=== PATIENT | female | born 1950 | race Caucasian/White ===

== ENCOUNTER 2016-06-02 22:49 | Inpatient (IN) | payer MEDICARE, OTHER ==
--- NOTE | ~2016-06-02 | HOLTER ---
Holter Monitor [facility] [address] [place]. [address] NAME: REDD CAMPBELL : 49 STATUS : DIS IN PAT#: [id number] AGE: 66 ADM/REG DATE : 06/03/16 MR#: [id number] REPORT SERV DATE: 06/13/16 DICTATED BY: CHUCHO MURGUIA DATE: 06/13/16 REPORT STATUS : Draft TRANSCRIBED BY: MODL DATE: 06/13/16 22-HOUR HOLTER MONITOR REPORT RESPONSIBLE PROVIDER: Johana Kaye M.D.. INDICATIONS: This 66-year-old female with sinus pauses. RECORDING QUALITY: Overall quality of study is good. RHYTHM: Rhythm is sinus, which varies from 48 to 99 beats per minute with an average heart rate of 74 beats per minute. VENTRICULAR ARRHYTHMIA: There are occasional PVCs. SUPRAVENTRICULAR ARRHYTHMIA: There are occasional PACs. SYMPTOMS: No diary submitted. CONCLUSION: No significant dysrhythmia found. No significant symptoms noted. Please see attached worksheet for further details. Definitions for premature beat frequency Approximately Rare <100 <0.1 % Occasional 100-1500 0.1 - 1.5 % Frequent >1500 >1.5 % TROY/LOTUS Chucho Murguia M.D. / [id number]
--- NOTE | ~2016-06-02 | DS ---
Discharge Summary [place] [address] [place]. [address] NAME: REDD CAMPBELL : 49 STATUS : DIS IN PAT#: [id number] AGE: 66 ADM/REG DATE : 06/03/16 MR#: [id number] REPORT SERV DATE: 06/11/16 DICTATED BY: DATE: REPORT STATUS : Draft TRANSCRIBED BY: MODL DATE: 06/10/16 ADMISSION DATE: 06/03/2016 DISCHARGE DATE: 06/10/2016 DISCHARGE DIAGNOSES: 1. Severe hypothyroidism. 2. Obstructive sleep apnea with CPAP machine. 3. Obesity hypoventilation syndrome. 4. Bradycardia, sinus pauses. 5. Hypertension. 6. Escherichia coli urinary tract infection. 7. Diabetes mellitus type 2. CONSULTING PHYSICIANS: 1. Kentrell Teixeira M.D. 2. David Suarez M.D. 3. Keegan Barajas M.D. 4. Eitan Reveles M.D. DISCHARGE MEDICATIONS: 1. Aspirin 81 mg p.o. daily. 2. Bumex 2 mg p.o. daily. 3. Wellbutrin 300 mg XL p.o. daily. 4. Venelex ointment apply to bilateral legs b.i.d. 5. Vitamin D 1000 units p.o. daily. 6. Flonase two sprays in each nostril daily. 7. NovoLog sliding scale. 8. Imdur ER 60 mg p.o. daily. 9. Zyrtec 10 mg p.o. daily. 10.Cozaar 50 mg p.o. daily. 11.Prilosec 20 mg p.o. daily. 12.Potassium chloride 20 mEq p.o. daily. 13.Pravastatin 20 mg p.o. at bedtime. 14.Arcola Thyroid 195 mg p.o. daily. 15.Apresoline 25 mg p.o. q.8 hours, hold for systolic blood pressure less than 140. 16.Levemir 35 units subcu daily. 17.Tylenol 650 mg p.o. q.4 hours p.r.n. for temp greater than 101. 18.Artificial Tears one to two drops in both eyes four times daily p.r.n. 19.Voltaren Gel apply to affected areas b.i.d. p.r.n. for pain. 20.Ativan 0.5 mg p.o. b.i.d. p.r.n. for anxiety. 21.Nitroglycerin 0.4 mg sublingual p.r.n. for chest pain. 22.Zofran 4 mg sublingual q.4 hours p.r.n. for nausea. 23.Zanaflex 4 mg p.o. t.i.d. p.r.n. for muscle spasms. 24.Albuterol inhaler q.2 hours p.r.n. for shortness of breath. 25.Victoza pen 1.8 mg subcu daily. Discharge Summary [address] [address] NAME: REDD CAMPBELL : 49 STATUS : DIS IN PAT#: [id number] AGE: 66 ADM/REG DATE : 06/03/16 MR#: [id number] REPORT SERV DATE: 06/11/16 DICTATED BY: DATE: REPORT STATUS : Draft TRANSCRIBED BY: MODMonroe DATE: 06/10/16 IMAGING: CT of the brain without contrast, which was negative for an acute intracranial process. Portable chest x-ray demonstrated cardiomegaly. Lungs were clear. Venous Doppler of the lower extremities bilaterally demonstrated no evidence of DVT in the right or left lower extremity. An echocardiogram that showed normal left ventricular wall thickness in size, normal left ventricular ejection fraction without segmental wall motion abnormalities, normal left atrial dimensions, normal diastolic function, mitral annular calcification, aortic valve sclerosis without stenosis, trivial valvular regurg, indeterminate pulmonary artery pressure. For full H and P please refer to Dr. Yefri Cochran's dictation on 06/02/2016. HOSPITAL COURSE: Again, the patient was admitted on 06/03/2016 initially with confusion. Apparently, the patient has been on thyroid replacement for a long time. She is taking [place]col[place] Thyroid, she was taking 180 mg p.o. daily when her primary care physician increased her to 195 mg p.o. daily; however, the Pharmacy gave her 15 mg p.o. daily. The patient reports that she took the 15 mg for multiple months. She came in with a TSH of 102 and it was subsequently rechecked prior to I took over her care, and it was 127. The patient was receiving Synthroid IV 100 mcg b.i.d. I placed the patient back on [place]col[place] Thyroid 195 mg p.o. daily. She is no longer confused. She is alert and oriented x4. Apparently, probably related to her thyroid issues she developed some bradycardia with sinus pauses. Her home Coreg was discontinued. Cardiology was consulted. She had a cardiac workup which included echo as mentioned above. Dr. Reveles has been following and she has not had any bradycardia or sinus pauses in the last several days. The patient is to follow up with him in two weeks after discharge. The patient did have a physical therapy eval which recommended the patient go to a longterm facility for rehabilitation prior to going home. She will be going to a [facility] today. Upon discharge I will continue her CPAP for obstructive sleep apnea. The patient was counseled on dietary changes for her obesity. The patient's BMI is 72. Her hypertension has been controlled. Apparently, she had a urinary tract infection that grew E. coli. The patient received three days of IV Rocephin, and I D/C'd the Rocephin and started her on Levaquin which she received another four days of. She is no longer symptomatic, so I will discontinue the Levaquin prior to discharge. The patient also a diabetic, her blood sugars have been fairly well controlled. Her hemoglobin A1c was 7.9. She is currently on Levemir which I will continue as well as insulin sliding scale. The patient will be instructed to follow up with her primary care provider for further TSH and free T4 checks in the future, the first being in four to six weeks. Her primary care physician is Dr. Eloy Hui. CAR/LOTUS [place] Discharge Summary [address] [address] NAME: REDD CAMPBELL : 49 STATUS : DIS IN PAT#: [id number] AGE: 66 ADM/REG DATE : 06/03/16 MR#: [id number] REPORT SERV DATE: 06/11/16 DICTATED BY: DATE: REPORT STATUS : Draft TRANSCRIBED BY: MODL DATE: 06/10/16 Timur Harrell NP / [id number] CC: MD Eloy Koehler M.D. Alexander Stratienko, M.D.
--- NOTE | ~2016-06-02 | ECH ---
Echocardiogram [address] [address] NAME: REDD CAMPBELL : 49 STATUS : ADM IN PAT#: [id number] AGE: 66 ADM/REG DATE : 06/03/16 MR#: [id number] REPORT SERV DATE: 06/07/16 DICTATED BY: CORBIN REVELES DATE: 06/06/16 REPORT STATUS : Draft TRANSCRIBED BY: MODL DATE: 06/06/16 ORDERING DOCTOR: Dr. Keys INDICATIONS: ? Congestive heart failure, atrial fibrillation, sinus pauses. TECH: Overall quality of the sound transmission is limited. MEASUREMENTS (in cm) Aortic Root = 3.1. Septal Wall = 1.1 Posterior Wall = 1.1 LV Diastolic = 5.3 LV Systolic = 3.6 Left Atrium = 3.7 CEASAR: Indeterminate. ASCENDING AORTA: 2.8 cm LVEF: By visual estimation 50%. E/A: 0.8. 2D DOPPLER: 1. Aortic Valve: Sclerotic with adequate systolic excursion. 2. Aortic Root: Normal. 3. Mitral Valve: Mitral annular calcification and leaflet thickening identified. Adequate diastolic leaflet excursion. 4. Tricuspid Valve: Morphologically normal without prolapse. 5. Pulmonic Valve: Grossly normal. 6. Left Ventricle: No high grade segmental wall motion abnormalities. Ejection fraction is estimated to be in the range of 50%. 7. Right Ventricle: Normal. 8. Pericardial Space: No effusion. 9. Intracardiac Masses: None. 10.Other: None. DOPPLER/COLOR FLOW: 1+ AR. No MR. 1+ TR. No ME. FINAL IMPRESSION: 1. Normal LV wall thickness and size. 2. Normal left ventricular ejection fraction without segmental wall motion abnormalities. 3. Normal left atrial dimensions. 4. Normal diastolic function. 5. Mitral annular calcification. 6. Aortic valve sclerosis without stenosis. 7. Trivial valvular regurgitation as defined. 8. Indeterminate pulmonary artery pressure. Echocardiogram [address] [address] NAME: REDD CAMPBELL : 49 STATUS : ADM IN PAT#: [id number] AGE: 66 ADM/REG DATE : 06/03/16 MR#: [id number] REPORT SERV DATE: 06/07/16 DICTATED BY: CORBIN REVELES DATE: 06/06/16 REPORT STATUS : Draft TRANSCRIBED BY: MODL DATE: 06/06/16 /MODL Corbin Reveles M.D. / [id number] CC: Arleen Velazquez M.D.
--- NOTE | ~2016-06-02 | CN ---
Consultation Report [facility] [address] [place]. [address] NAME: REDD CAMPBELL : 49 STATUS : ADM IN PAT#: [id number] AGE: 66 ADM/REG DATE : 06/03/16 MR#: [id number] REPORT SERV DATE: 06/06/16 DICTATED BY: DAVID SUAREZ DATE: 06/06/16 REPORT STATUS : Draft TRANSCRIBED BY: MODL DATE: 06/06/16 ELECTROPHYSIOLOGY CONSULTATION DATE OF CONSULTATION: 06/06/2016 INDICATION: Bradycardia. HISTORY OF PRESENT ILLNESS: Redd Campbell is a 66-year-old female who was admitted on the 06/03/2016 with altered mental status and urinary tract infection. She had been in a rehab facility. She has uncontrolled hypothyroidism with a TSH greater than 100, obesity hypoventilation syndrome, morbid obesity, and noncompliance with CPAP. While here, for urinary tract infection, she is undergoing treatment. She is noted to have some nocturnal pauses up to about seven seconds either sinus pauses as well as occasional bradycardia in the morning with heart rates in the 40s. She is nonambulatory. She has not had yvette syncope. She reports some dizziness if she attempts to rise to a sitting position or getting into a car, but otherwise she does not walk at all. Electrophysiology is consulted to re-evaluate sinus pauses. She has no complaints of chest pain at the present time. Does have chronic shortness of breath. She has massive bilateral lower extremity edema. PAST MEDICAL HISTORY: Hypothyroidism, apparently noncompliant with thyroid hormone replacement; ANDRZEJ and noncompliant with CPAP; bilateral lower extremity lymphedema; history of an IVC filter; history of ovarian cancer; morbid obesity; hypertension; diabetes; hyperlipidemia; peripheral vascular disease; coronary artery disease. PRESENT MEDICATIONS: Aspirin, Bumex, Wellbutrin, Rocephin, subcu heparin, hydralazine, sliding scale insulin, Imdur, lactulose, Synthroid, Claritin, Cozaar, Levemir, Pravachol, potassium, and Protonix. ALLERGIES: ABILIFY AND INDERAL. THE PATIENT WAS ON COREG ON ADMISSION, BUT THAT WAS DISCONTINUED SECONDARY TO BRADYCARDIA. SOCIAL HISTORY: No smoking. No alcohol. She has been a significant amount of time in rehab by her report. FAMILY HISTORY: Notable for lupus. REVIEW OF SYSTEMS: As per the HPI. Otherwise, all other review of systems are negative. PHYSICAL EXAMINATION: VITAL SIGNS: Blood pressure 134/65, pulse is 79, respiratory rate is 20. Consultation Report [place] [address] [place]. [address] NAME: REDD CAMPBELL : 49 STATUS : ADM IN PAT#: [id number] AGE: 66 ADM/REG DATE : 06/03/16 MR#: [id number] REPORT SERV DATE: 06/06/16 DICTATED BY: DAVID SUAREZ DATE: 06/06/16 REPORT STATUS : Draft TRANSCRIBED BY: MODMonroe DATE: 06/06/16 GENERAL: Appears stated age, no distress. EYES: Sclerae anicteric, no arcus senilis. MOUTH: Oral mucosa moist, lips acyanotic. NECK: Jugular venous pressure normal, no carotid bruits. LUNGS: Diminished breath sounds. CARDIAC: Irregular rhythm. Heart sounds distant secondary to body habitus.. ABDOMEN: Morbidly obese. Soft, nondistended, nontender. EXTREMITIES: Massive bilateral lower extremity edema with chronic venous stasis changes. SKIN: Warm and dry. DATA: Sodium is 140, potassium 4.1, creatinine 1.33. Hemoglobin 13.5. BNP 40. TSH 127. Telemetry demonstrates sinus rhythm with sinus pauses as described above. ECG this morning is sinus rhythm with first-degree AV delay. Q-waves in lead V1 and V2. IMPRESSION: 1. Nocturnal sinus pauses up to seven seconds. 2. Intermittent daytime bradycardia in the morning hours. The patient likely asleep at these times with heart rates to the 40s. 3. History of noncompliance with CPAP/untreated obstructive sleep apnea, marked hypothyroidism, and recent beta radha use and the patient is nonambulatory. RECOMMENDATIONS: At this point, I would not recommend implantation of a pacemaker. I would treat underlying causes such as her sleep apnea and significant hypothyroidism and would remain off beta radha. The patient is nonambulatory, so risk of fall with syncope she would develop that seems fairly low. We are concerned about the risk of implantable device infection in this lady with diabetes and urinary tract infection. FAMILIA/LOTUS David Suarez M.D. / [id number] CC: Arleen Velazquez M.D.
--- NOTE | ~2016-06-02 | HP ---
History And Physical [place] [address] [facility] [place]. [address] NAME: REDD CAMPBELL : 49 STATUS : ADM IN [facility]#: [id number] AGE: 66 ADM/REG DATE : 06/03/16 MR#: [id number] REPORT SERV DATE: 06/03/16 DICTATED BY: YEFRI COCHRAN DATE: 06/03/16 REPORT STATUS : Draft TRANSCRIBED BY: MODL DATE: 06/03/16 DATE OF ADMISSION: 06/03/2016 CHIEF COMPLAINT: Confusion. HISTORY OF PRESENT ILLNESS: This is a 66-year-old lady with history of hypertension, diabetes, hypothyroidism amongst many other medical conditions, presenting with a confusion. Please note that while the patient was quite alert and with it, the patient really was not able to provide any valuable history. By the time of my encounter with the patient, the patient's family had left and they were unreachable by phone. This H and P is formulated from information gathered from ED staff as well as from careful review of existing previous medical records. The patient apparently became confused over the past couple of days and the family members decided to bring her to the ER. There was no history of acute illness. There is no history of focal neurologic deficits. The patient simply became confused apparently. In the ER, the patient was found to be afebrile. The patient was initially found to be quite hypertensive with blood pressure of 208/195, which got somewhat better throughout the ER course. The patient was otherwise hemodynamically stable. Initial lab evaluation was actually all very benign with benign electrolytes, benign renal function, benign LFTs. CBC was also quite benign. TSH was checked and it actually came back hugely elevated at 102. Urinalysis was also positive for urinary tract infection and ABG showed hypoxia. Internal Medicine consultation was requested for admission of the patient for further evaluation and care. In reviewing the patient's medication history, the patient was apparently supposed to be on 180 of Victoria Thyroid and then, the patient's primary care physician increased the Victoria Thyroid by adding another 15. Apparently, there was a miscommunication and instead of adding the 15 to her 180, the patient was simply switched to 15 and thus as far as we know, the patient has been on 15 of Victoria Thyroid for the past two months when she is really supposed to be on 195 mg. REVIEW OF SYSTEMS: The patient denies any fevers or chills. Also, 14-point review of systems reviewed and negative, other than mentioned above. MEDICATIONS: 1. Tylenol 1000 mg p.o. b.i.d. p.r.n. 2. Artificial Tears four times daily p.r.n. 3. Aspirin 81 mg p.o. daily. 4. Bumex 2 mg p.o. daily. 5. Wellbutrin 300 mg p.o. daily. 6. Coreg 6.25 mg p.o. b.i.d. 7. Zyrtec 10 mg p.o. q.a.m. 8. Vitamin D3 1000 units p.o. daily. 9. Voltaren 1% topical gel to affected areas as needed. 10.Imdur 30 mg p.o. daily. 11.Victoza 1.8 mg subcutaneously daily. History And Physical [address] [address] NAME: REDD CAMPBELL : 49 STATUS : ADM IN [facility]#: [id number] AGE: 66 ADM/REG DATE : 06/03/16 MR#: [id number] REPORT SERV DATE: 06/03/16 DICTATED BY: YEFRI COCHRAN DATE: 06/03/16 REPORT STATUS : Draft TRANSCRIBED BY: LOTUS DATE: 06/03/16 12.Ativan 0.5 mg p.o. b.i.d. 13.Cozaar 50 mg p.o. daily. 14.Aleve 440 mg p.o. three times daily p.r.n. 15.Nitrostat 0.4 mg sublingually as needed. 16.Prilosec 20 mg p.o. daily. 17.K-Dur 20 mEq p.o. daily. 18.Pravachol 20 mg p.o. q.h.s. 19.Victoria Thyroid 15 mg p.o. daily, which is really supposed to be 195 mg p.o. daily. 20.Zanaflex 4 mg p.o. three times daily p.r.n. 21.Venelex ointment twice daily topically. ALLERGIES: 1. ABILIFY. 2. PROPRANOLOL. PAST MEDICAL HISTORY: 1. Chronic bilateral lower extremity lymphedema. 2. Coronary artery disease. 3. Hiatal hernia and GERD. 4. IBS. 5. Morbid obesity. 6. Hypertension. 7. Diabetes type 2. 8. Hypothyroidism and Graves disease. 9. Hyperlipidemia. 10.Peripheral artery disease. 11.Lupus. 12.AFib. 13.DVT with history of IVC filter. PAST SURGICAL HISTORY: 1. IVC filter. 2. Hysterectomy. 3. Cholecystectomy. 4. Ovarian cancer and unclear uterus surgery. 5. Bilateral carpal tunnel release. 6. Left foot surgery. FAMILY HISTORY: Lupus. SOCIAL HISTORY: The patient does not smoke, drink alcohol, or use any illicit drugs. The patient apparently lives at home by herself with her daughter living close by. PHYSICAL EXAMINATION: VITAL SIGNS: Temperature 97.7, blood pressure 208/95 which by the time of my encounter showed a blood pressure of 161/141, pulse 73, respiratory rate is 20, and saturating 94% on room air. History And Physical [address] [address] NAME: REDD CAMPBELL : 49 STATUS : ADM IN [facility]#: [id number] AGE: 66 ADM/REG DATE : 06/03/16 MR#: [id number] REPORT SERV DATE: 06/03/16 DICTATED BY: YEFRI COCHRAN DATE: 06/03/16 REPORT STATUS : Draft TRANSCRIBED BY: LOTUS DATE: 06/03/16 GENERAL: The patient is alert and oriented x3 with no focal neurologic deficits. The patient is awake, somewhat slow in mentation, but still able to interact and have a meaningful conversation. The patient otherwise does not appear to be in acute distress, and the patient is cooperative. NECK: No JVD. No lymphadenopathy. Normal thyroid. CHEST: No midline sternotomy scar and no tenderness to palpation. LUNGS: Clear to auscultation bilaterally with normal respiratory effort on room air. CARDIOVASCULAR: Regular rate and rhythm with no murmurs, rubs, or gallops, and PMI is nondisplaced. ABDOMEN: Soft, nontender, with active bowel sounds and no organomegaly. EXTREMITIES: The patient's bilateral lower extremities are tightly wrapped and dressed by Wound Care at home. Otherwise, the patient has no calf tenderness. SKIN: Clean, dry, warm, and intact. LABORATORY DATA: Sodium is 142, potassium 4.0, chloride 97, BUN 21, creatinine 1.14, glucose 175, calcium 9.0. LFTs and lipase are within normal limits. Ammonia level was 28, white blood cell count is 6.3, hemoglobin 13.1, platelets 162. TSH was 102. Free T3 and free T4 levels are pending at this time. ABG; pH is 7.38, pCO2 60, pO2 64, and oxygen saturation of 92.2% on room air. Urinalysis was positive with small leukocyte esterase, positive for nitrite, 31 white blood cells, and many bacteria. CT of the head showed a marked proptosis, but otherwise negative. ASSESSMENT: This is a 66-year-old lady with history of hypertension, diabetes, morbid obesity, and hypothyroidism, presenting with encephalopathy. 1. Encephalopathy, likely multifactorial. The patient is actually quite awake and interactive here in the ER. 2. Uncontrolled hypothyroidism with TSH greater than 100. This is likely secondary to medication misdosing where the patient is supposed to be on 195 mg of Victoria Thyroid, but she has only been on 15 mg for the past two months. 3. Also positive UA for urinary tract infection. 4. Mild hypoxia on room air, probably related to obesity hypoventilation syndrome. 5. Morbid obesity. 6. History of deep vein thrombosis as well as atrial fibrillation, but she is currently not on any anticoagulation based on medication list. 7. Hypertension. 8. Diabetes type 2. PLAN: My plan is to admit the patient under telemetry monitoring. The patient will be given some IV fluid resuscitation. I will start the patient on thyroid replacement therapy at the correct dose. The patient will also be given oxygen support and bronchodilator therapy as needed. I will check urine cultures as well as procalcitonin level and start her on empiric IV Rocephin. I think most of all, it is probably important to get baseline medical history correct in the morning and I will request medical records from PCP's office to find out the correct dosing of Victoria Thyroid as well as finding out why she is not on any anticoagulation despite history of DVT and AFib. Otherwise, for the rest of stable past medical conditions, including hypertension, diabetes type 2, I will continue home medications. Standard DVT prophylaxis. The patient is full code at this time. History And Physical [address] [place]. [address] NAME: REDD CAMPBELL : 49 STATUS : ADM IN PAT#: [id number] AGE: 66 ADM/REG DATE : 06/03/16 MR#: [id number] REPORT SERV DATE: 06/03/16 DICTATED BY: YEFRI COCHRAN DATE: 06/03/16 REPORT STATUS : Draft TRANSCRIBED BY: LOTUS DATE: 06/03/16 [facility]/LOTUS Yefri Cochran MD / [id number] CC: Arleen Velazquez M.D.
--- NOTE | ~2016-06-02 | CN ---
Consultation Report [facility] [address] [place]. [address] NAME: REDD CAMPBELL : 48 STATUS : ADM IN [facility]#: [id number] AGE: 66 ADM/REG DATE : 06/03/16 MR#: [id number] REPORT SERV DATE: 06/04/16 DICTATED BY: KENTRELL TEIXEIRA DATE: 06/04/16 REPORT STATUS : Draft TRANSCRIBED BY: MODL DATE: 06/04/16 PULMONARY CONSULTATION DATE OF CONSULTATION: 06/04/2016 REASON FOR CONSULTATION: Acute respiratory distress. CHIEF COMPLAINT: As noted above. HISTORY OF PRESENT ILLNESS: Mrs. Campbell is a 66-year-old female with a past medical history of Graves disease and hypothyroidism, who presented yesterday with confusion. Today, she was much more with it. However, the patient was noticing that she is confused; however, she was making sense to me. In the emergency room yesterday, she was found to be very hypertensive with hypothyroidism and hypoxia. Overnight, the patient has had worsening shortness of breath, mild hypoxia. The patient states that she was diagnosed with sleep apnea 15 years ago, she cannot recall her sleep physician, but it may be Dr. Anaya on [place]. Otherwise, no further complaints from the patient. PAST MEDICAL HISTORY: Reviewed the past history on the history and physical, most notably hypothyroidism, obstructive sleep apnea, obesity hypoventilation syndrome, morbid obesity, chronic lower extremity edema, lupus, history of DVT. MEDICATIONS: Home medication list reviewed, the patient is not currently on any anticoagulation. ALLERGIES: ABILIFY. SOCIAL HISTORY: The patient is a nonsmoker. No alcohol. Lives at home. FAMILY HISTORY: Other family members with lupus. REVIEW OF SYSTEMS: All pertinent review of systems is reviewed and is otherwise negative. PHYSICAL EXAMINATION: CURRENT VITAL SIGNS: Afebrile, heart rate 60s to 70s, respiratory rate 12 to 22, oxygen saturation 93% on 2 L nasal cannula. GENERAL: The patient is sleepy, but arousable. She can stay awake as long as I am in the room, in mild respiratory distress. HEENT: Unable to tell if there is any JVD at 90 degrees. PULMONARY: Distant breath sounds bilaterally. No wheezing. CARDIAC: Muffled heart sounds, but no obvious murmurs. ABDOMEN: Soft and nontender. Could not hear any bowel sounds. NEUROLOGIC: The patient is able to move all extremities with no perceived difficulty. Consultation Report [place] [place] [id number] [facility] [place] [id number] NAME: REDD CAMPBELL : 48 STATUS : ADM IN PAT#: [id number] AGE: 66 ADM/REG DATE : 06/03/16 MR#: [id number] REPORT SERV DATE: 06/04/16 DICTATED BY: KENTRELL TEIXEIRA DATE: 06/04/16 REPORT STATUS : Draft TRANSCRIBED BY: LOTUS DATE: 06/04/16 EXTREMITIES: Peripheral pulses in all extremities. The patient clearly has stasis dermatitis bilaterally. LABORATORY EXAMINATION: No leukocytosis. Bicarbonate 38, creatinine 1.21. Ammonia 48. TSH 102. Arterial blood gas shows chronic elevation of pCO2. Minor UTI. Negative procalcitonin. IMAGING: Chest x-ray just shows a right hilar chronic granuloma, but otherwise clear. ASSESSMENT AND PLAN: Mrs. aCmpbell is a 66-year-old female with a past medical history noted above, who presents to the Pulmonary Consult Service with acute respiratory distress. 1. Acute respiratory distress: Most likely secondary to obesity and obesity hypoventilation syndrome. Probably, will benefit from having more CPAP. Her home unit is currently now in the room, we will utilize. We will check a BNP and troponin. Echocardiogram is currently pending. Unclear why she is not on any anticoagulation, we will discuss with daughter. 2. Obesity hypoventilation syndrome: Clearly, the patient has this condition. As noted above, we will use the home CPAP machine now. 3. Hypothyroidism: Primary team has now started the patient on thyroid medications. Hopefully, this will help in this regard. 4. Possible cor pulmonale: Echocardiogram is currently pending. 5. Spastic hoarse voice: We will have Ear, Nose, and Throat see the patient in the next couple of days. Concern for possible vocal cord paralysis exists. Thank you very much for this consultation, please call us with any further questions or concerns. LAURAQ/LOTUS Kentrell Teixeira MD / [id number] CC: Arleen Mccain M.D.
--- NOTE | ~2016-06-02 | CN ---
Consultation Report [facility] [address] [place]. [address] NAME: REDD CAMPBELL : 48 STATUS : ADM IN PAT#: [id number] AGE: 66 ADM/REG DATE : 06/03/16 MR#: [id number] REPORT SERV DATE: 06/07/16 DICTATED BY: ERICKSON RAYA DATE: 06/06/16 REPORT STATUS : Draft TRANSCRIBED BY: MODL DATE: 06/06/16 DATE OF CONSULTATION: 06/06/2016 REASON FOR CONSULTATION: Hoarseness. HISTORY OF PRESENT ILLNESS: Ms. Campbell is a 66-year-old female admitted on 06/03/2016, presented with confusion. Apparently, the patient became confused over a couple of days prior to admission from the emergency room. There is no history of focal deficits since her hospitalization. She was noted to have some issues with hoarseness that seem to come and go, no difficulty with swallowing. CT of the head on 06/02, which showed significant proptosis, otherwise no intracranial abnormalities. Today, her voice is back to baseline. PAST MEDICAL HISTORY: Chronic lower extremity lymphedema, coronary artery disease, hiatal hernia, gastroesophageal reflux disease, morbid obesity, hypertension, type 2 diabetes, hypothyroidism, Graves disease, hyperlipidemia, peripheral artery disease, lupus, atrial fibrillation, and DVT with history of IVC filter. PAST SURGICAL HISTORY: IVC filter, hysterectomy, cholecystectomy, ovarian cancer, and bilateral carpal tunnel release, left foot surgery. SOCIAL HISTORY: No tobacco, alcohol, or drug use. Lives at home by herself. PHYSICAL EXAMINATION: GENERAL: The patient is morbidly obese. Alert, somewhat forgetful. Both ears are clear. Nose, she has a binasal cannula in place. Midline septum. ORAL CAVITY: Oropharynx is clear with normal tongue and palatal movement. NECK: Supple. No palpable adenopathy or masses. No thyromegaly. Flexible nasal endoscopy at the bedside shows inferior and middle meatus and nasopharynx are clear. The oropharynx is clear. Hypopharynx, larynx with no visible mucosal lesions. True vocal cords are mobile. Minimal vocal cord edema, but no ulcerative lesions. The thyroid region shows no significant swelling. IMPRESSION: Hoarseness, possibly secondary to intermittent gastroesophageal reflux disease, versus transient ischemic attack, but no evidence of vocal paralysis on nasal endoscopy today, and she has a normal voice from my exam today. RECOMMENDATION: No recommendation from my standpoint, call if needed. APOORVA/LOTUS Erickson Raya M.D. Consultation Report [address] [address] NAME: REDD CAMPBELL : 48 STATUS : ADM IN PAT#: [id number] AGE: 66 ADM/REG DATE : 06/03/16 MR#: [id number] REPORT SERV DATE: 06/07/16 DICTATED BY: ERICKSON RAYA DATE: 06/06/16 REPORT STATUS : Draft TRANSCRIBED BY: LOTUS DATE: 06/06/16 / [id number] CC: Arleen Velazquez M.D.
[2016-06-02 21:17] LABS: BASOPHILS 0 %; EOSINOPHILS 0 %; HEMATOCRIT 41.2 % (36.0-48.0); HEMOGLOBIN 13.1 g/dL (12.0-16.0); IMMATURE GRANULOCYTES 0.3 %; IMMATURE GRANULOCYTES ABSOLUTE 0.02 10/3/uL (0.0-0.11); LYMPHOCYTES 23.5 %; LYMPHOCYTES ABSOLUTE 1.47 10/3/uL (0.67-4.30); MANUAL DIFF NO %; MEAN CORPUS HGB CONC 31.8 g/dL (32.0-36.0); MEAN CORPUSCULAR HEMOGLOB 29.8 pg (26.0-34.0); MEAN CORPUSCULAR VOLUME 93.8 fL (80-100); MEAN PLATELET VOLUME 10.8 fL (9.2-13.0); MONOCYTES 5.9 %; MONOCYTES ABSOLUTE 0.37 10/3/uL (0.21-1.20); NEUTROPHILS 70.3 %; NEUTROPHILS ABSOLUTE 4.39 10/3/uL (2.02-8.40); PLATELET COUNT 162 10/3/uL (150-400); RBC DISTRIBUTION WIDTH 15.8 % (12.0-16.0); RED CELL COUNT 4.39 10/6/uL (4.0-5.6); WHITE BLOOD CELLS 6.3 10/3/uL (4.5-10.5)
[2016-06-02 21:33] LABS: ALBUMIN 3.7 G/DL (3.5-5.0); ALKALINE PHOSPHATASE 88 U/L (45-117); CHLORIDE, SERUM 97 MMOL/L (96-112); CREATININE 1.14 MG/DL (0.55-1.02); GFR AFRICAN AMERICAN 58 ML/MIN (>=60); GFR NON AFRICAN AMERICAN 50 ML/MIN (>=60); GLOBULIN 3.8 G/DL (2.5-4.1); GLUCOSE, SERUM 175 MG/DL (60-99); SGOT(AST) 28 U/L (5-40); SGPT(ALT) 31 U/L (5-65); SODIUM, SERUM 142 MMOL/L (135-148); TOTAL PROTEIN 7.5 G/DL (6.0-8.5)
[2016-06-02 21:34] LABS: BUN (BLOOD UREA NITROGEN) 21 MG/DL (6-23); CO2 (CARBON DIOXIDE) 38 MMOL/L (24-34); TOTAL BILIRUBIN 0.5 MG/DL (0-1.2)
[2016-06-02 22:22] LABS: BE (BASE EXCESS) 7.7 MEQ/L (0 +/- 2.5); CARBOXYHEMOGLOBIN 1.9 % (0-3); HCO3 (ACTUAL BICARBONATE) 34.7 MEQ/L (23-27); INSTRUMENT SERIAL # 8087; METHEMOGLOBIN 0.1 % (0-3); PCO2 (CO2 TENSION) 60 MMHG (35-45); PO2 (O2 TENSION) 64 MMHG (79-93); pH 7.38 (7.37-7.43)
[2016-06-02 22:23] LABS: HEMOBLOGIN CONTENT 13.2 G/DL (12-16); O2 CONTENT 16.8 VOL% (18-24); OPERATOR ID 23712; SAMPLE Arterial
[~2016-06-02 22:49] MED LIST: ALEVE220 MG PO; ANTI-FUNGAL2 % TOP; ARMOUR THYRO120 MG PO; ARMOUR THYRO180 MG PO; ARMOUR THYRO30 MG PO; ASAB PO; ATV.5 PO; BISR PR; BUDEPRION100 MG PO; BUM2 PO; CONSTULOSE PO; COREG6 PO; COSAMIN DS1 TAB PO; COZ50 PO; DIPHENCR TOP; GAS-X80 MG PO; GGDM5ML PO; HALF81 PO; IMDUR30 PO; IMOD PO; KAOPECTAT2 PO; KDUR20 PO; L40 PO; LEVSINTAB PO; LEVSINTAB PO/SL; MAALOX PO; MICARDIS40 PO; MO30L TOP; MOMUD PO; NITROSTAT0.4 MG SL; NORCO1 TAB PO; NOVOLOG SC; NYSTOP100000 MG TOP; OTC EYE DROP OPH; PR25 PO; PR25R PR; PRAVAC PO; PREV15 PO; PRILO PO; PRILOSEC40 MG PO; PRIN20 PO; ROBINUL FORT2 MG PO; SUCR PO; SYSTANE OPH; TEARS PURE OPH; VICTOZA18 MG/3 ML SC; VITAMIN D31000 UNIT PO; WELLSR100 PO; ZANAFLEX 4 MG TA4 MG PO; ZOFRAN ODT4 MG PO; ZYRTEC ALLGY10 MG PO
[2016-06-02 23:29] LABS: ASCORBIC ACID (UR NOT ORDER) NEG (NEG); BILIRUBIN, URINE NEGATIVE (NEG); ER URINALYSIS TAT 0 Hrs 00 Mins; KETONE, URINE NEGATIVE (NEG); LEUKOCYTE ESTERASE(NOT OR SMALL (NEG); NITRITE (URINE) POS (NEG); WBC (NOT ORDERED) (RFLEX) 31 (0-5)
[2016-06-03] MEDS ORDERED: COREG6 PO (02:14)
[2016-06-03] MEDS ORDERED: ARMOUR THYRO15 MG PO (02:14)
[2016-06-03] MEDS ORDERED: ATV.5 PO (02:14)
[2016-06-03] MEDS ORDERED: PRILO PO (02:14)
[2016-06-03] MEDS ORDERED: ZANAFLEX 4 MG TA4 MG PO (02:15)
[2016-06-03] MEDS ORDERED: WELLXL300 PO (02:15)
[2016-06-03] MEDS ORDERED: KDUR20 PO (02:16)
[2016-06-03] MEDS ORDERED: PRAVAC PO (02:16)
[2016-06-03] MEDS ORDERED: IMDUR30 PO (02:16)
[2016-06-03] MEDS ORDERED: VICTOZA18 MG/3 ML SC (02:17)
[2016-06-03] MEDS ORDERED: TEARS PURE OPH (02:17)
[2016-06-03] MEDS ORDERED: BUM2 PO (02:18)
[2016-06-03] MEDS ORDERED: ZYRTEC ALLGY10 MG PO (02:18)
[2016-06-03] MEDS ORDERED: ASAB PO (02:18)
[2016-06-03] MEDS ORDERED: VITAMIN D31000 UNIT PO (02:18)
[2016-06-03] MEDS ORDERED: ACET500CAP PO (02:19)
[2016-06-03] MEDS ORDERED: NITROSTAT0.4 MG SL (02:19)
[2016-06-03] MEDS ORDERED: ALEVE220 MG PO (02:19)
[2016-06-03] MEDS ORDERED: COZ50 PO (02:19)
[2016-06-03] MEDS ORDERED: VOLTAREN1 % TOP (02:36)
[2016-06-03 02:52] LABS: FREE T4 0.13 NG/DL (0.76-1.46); T3 UPTAKE 27 % (30-45)
[2016-06-03] MEDS ORDERED: VENELEX OINTMENT TOP (02:53)
[2016-06-03 06:45] LABS: HEMATOCRIT 42.1 % (36.0-48.0); HEMOGLOBIN 13.5 g/dL (12.0-16.0); MEAN CORPUS HGB CONC 32.1 g/dL (32.0-36.0); MEAN CORPUSCULAR HEMOGLOB 30.1 pg (26.0-34.0); MEAN CORPUSCULAR VOLUME 93.8 fL (80-100); MEAN PLATELET VOLUME 10.7 fL (9.2-13.0); PLATELET COUNT 157 10/3/uL (150-400); RBC DISTRIBUTION WIDTH 15.8 % (12.0-16.0); RED CELL COUNT 4.49 10/6/uL (4.0-5.6); WHITE BLOOD CELLS 6.3 10/3/uL (4.5-10.5)
[2016-06-03 06:50] LABS: MANUAL DIFF YES %
[2016-06-03 06:57] LABS: BUN (BLOOD UREA NITROGEN) 19 MG/DL (6-23); CALCIUM, SERUM 8.8 MG/DL (8.5-10.4); CHLORIDE, SERUM 99 MMOL/L (96-112); CO2 (CARBON DIOXIDE) 35 MMOL/L (24-34); GLUCOSE, SERUM 245 MG/DL (60-99); POTASSIUM, SERUM 3.9 MMOL/L (3.5-5.3); SODIUM, SERUM 141 MMOL/L (135-148)
[2016-06-03 06:59] LABS: CREATININE 1.06 MG/DL (0.55-1.02); GFR AFRICAN AMERICAN 63 ML/MIN (>=60); GFR NON AFRICAN AMERICAN 54 ML/MIN (>=60); PHOSPHORUS, SERUM 2.3 MG/DL (2.5-4.5)
[2016-06-03 07:29] LABS: PROCALCITONIN <0.05 ng/mL (<0.5)
[2016-06-03 07:39] LABS: BAND NEUTROPHILS 2 %; LYMPHOCYTES 10 %; LYMPHOCYTES ABSOLUTE (CALC) 0.63 10/3/uL (0.67-4.30); MONOCYTES 2 %; MONOCYTES ABSOLUTE (CALC) 0.13 10/3/uL (0.21-1.20); NEUTROPHILS ABSOLUTE (CALC) 5.54 10/3/uL (2.02-8.40); PLATELET ESTIMATE ADQ (ADEQUATE); RBC MORPHOLOGY NORM (NORMAL); SEGMENTED NEUTROPHIL (0) 86 %; TOTAL NUCLEATED CELLS 100
[2016-06-04 04:47] LABS: BE (BASE EXCESS) 12.9 MEQ/L (0 +/- 2.5); CARBOXYHEMOGLOBIN 1.9 % (0-3); DEVICE NC; HCO3 (ACTUAL BICARBONATE) 40.4 MEQ/L (23-27); HEMOBLOGIN CONTENT 12.3 G/DL (12-16); INSTRUMENT SERIAL # 8087; METHEMOGLOBIN 0.1 % (0-3); OPERATOR ID 17537; PCO2 (CO2 TENSION) 67 MMHG (35-45); PO2 (O2 TENSION) 55 MMHG (79-93); SAMPLE Arterial
[2016-06-04 07:10] LABS: BUN (BLOOD UREA NITROGEN) 21 MG/DL (6-23); CALCIUM, SERUM 8.9 MG/DL (8.5-10.4); CHLORIDE, SERUM 98 MMOL/L (96-112); CO2 (CARBON DIOXIDE) 38 MMOL/L (24-34); CREATININE 1.21 MG/DL (0.55-1.02); GFR AFRICAN AMERICAN 54 ML/MIN (>=60); GFR NON AFRICAN AMERICAN 46 ML/MIN (>=60); POTASSIUM, SERUM 3.9 MMOL/L (3.5-5.3); SODIUM, SERUM 143 MMOL/L (135-148)
[2016-06-04 07:11] LABS: GLUCOSE, SERUM 139 MG/DL (60-99)
[2016-06-04 09:06] LABS: BE (BASE EXCESS) 10.3 MEQ/L (0 +/- 2.5); CARBOXYHEMOGLOBIN 0.7 % (0-3); DEVICE NC; HCO3 (ACTUAL BICARBONATE) 38.3 MEQ/L (23-27); INSTRUMENT SERIAL # 35151; METHEMOGLOBIN 0.5 % (0-3); PCO2 (CO2 TENSION) 69 MMHG (35-45); PO2 (O2 TENSION) 77 MMHG (79-93); SAMPLE Arterial; pH 7.37 (7.37-7.43)
[2016-06-04 09:07] LABS: ALLENS TEST Pos
[2016-06-05 06:19] LABS: BUN (BLOOD UREA NITROGEN) 20 MG/DL (6-23); CALCIUM, SERUM 9.2 MG/DL (8.5-10.4); CHLORIDE, SERUM 97 MMOL/L (96-112); CO2 (CARBON DIOXIDE) 38 MMOL/L (24-34); GFR AFRICAN AMERICAN 60 ML/MIN (>=60); GFR NON AFRICAN AMERICAN 52 ML/MIN (>=60); GLUCOSE, SERUM 132 MG/DL (60-99); POTASSIUM, SERUM 3.9 MMOL/L (3.5-5.3); SODIUM, SERUM 142 MMOL/L (135-148)
[2016-06-06 04:40] LABS: CALCIUM, SERUM 9.2 MG/DL (8.5-10.4); CHLORIDE, SERUM 95 MMOL/L (96-112); CREATININE 1.33 MG/DL (0.55-1.02); GFR AFRICAN AMERICAN 48 ML/MIN (>=60); GFR NON AFRICAN AMERICAN 41 ML/MIN (>=60); GLUCOSE, SERUM 143 MG/DL (60-99); POTASSIUM, SERUM 4.1 MMOL/L (3.5-5.3); SODIUM, SERUM 140 MMOL/L (135-148)
[2016-06-06 04:47] LABS: BUN (BLOOD UREA NITROGEN) 24 MG/DL (6-23); CO2 (CARBON DIOXIDE) 42 MMOL/L (24-34)
[2016-06-08 06:43] LABS: BASOPHILS 0 %; EOSINOPHILS 0 %; HEMATOCRIT 38.7 % (36.0-48.0); HEMOGLOBIN 12.3 g/dL (12.0-16.0); IMMATURE GRANULOCYTES 0.4 %; IMMATURE GRANULOCYTES ABSOLUTE 0.02 10/3/uL (0.0-0.11); LYMPHOCYTES 37.8 %; LYMPHOCYTES ABSOLUTE 2.13 10/3/uL (0.67-4.30); MEAN CORPUS HGB CONC 31.8 g/dL (32.0-36.0); MEAN CORPUSCULAR HEMOGLOB 30.2 pg (26.0-34.0); MEAN CORPUSCULAR VOLUME 95.1 fL (80-100); MEAN PLATELET VOLUME 10.8 fL (9.2-13.0); MONOCYTES 8.5 %; MONOCYTES ABSOLUTE 0.48 10/3/uL (0.21-1.20); NEUTROPHILS 53.3 %; PLATELET COUNT 135 10/3/uL (150-400); RBC DISTRIBUTION WIDTH 16.1 % (12.0-16.0); RED CELL COUNT 4.07 10/6/uL (4.0-5.6); WHITE BLOOD CELLS 5.6 10/3/uL (4.5-10.5)
[2016-06-08 06:44] LABS: MANUAL DIFF NO %
[2016-06-08 06:53] LABS: BUN (BLOOD UREA NITROGEN) 24 MG/DL (6-23); CALCIUM, SERUM 9.1 MG/DL (8.5-10.4); CHLORIDE, SERUM 92 MMOL/L (96-112); CO2 (CARBON DIOXIDE) 38 MMOL/L (24-34); GFR AFRICAN AMERICAN 49 ML/MIN (>=60); GFR NON AFRICAN AMERICAN 42 ML/MIN (>=60); POTASSIUM, SERUM 3.8 MMOL/L (3.5-5.3); SODIUM, SERUM 138 MMOL/L (135-148)
[2016-06-08 06:57] LABS: GLUCOSE, SERUM 184 MG/DL (60-99)
[2016-06-09 06:22] LABS: BUN (BLOOD UREA NITROGEN) 23 MG/DL (6-23); CALCIUM, SERUM 8.7 MG/DL (8.5-10.4); CHLORIDE, SERUM 95 MMOL/L (96-112); CO2 (CARBON DIOXIDE) 38 MMOL/L (24-34); CREATININE 1.16 MG/DL (0.55-1.02); GFR AFRICAN AMERICAN 56 ML/MIN (>=60); GFR NON AFRICAN AMERICAN 49 ML/MIN (>=60); GLUCOSE, SERUM 159 MG/DL (60-99); POTASSIUM, SERUM 3.8 MMOL/L (3.5-5.3); SODIUM, SERUM 141 MMOL/L (135-148)
[2016-10-11] MEDS ORDERED: WELLXL300 PO (08:27)
[2016-10-11] MEDS ORDERED: VENELEX TOP (08:27)
[2016-10-11] MEDS ORDERED: COZ50 PO (08:28)
[2016-10-11] MEDS ORDERED: APRES25 PO (08:28)
[2016-10-11] MEDS ORDERED: ATV.5 PO (08:28)
[2016-10-11] MEDS ORDERED: ARMOUR THYRO15 MG PO (08:30)
[2016-10-11] MEDS ORDERED: FLONASE NAS (08:31)
[2016-10-11] MEDS ORDERED: ZANAFLEX 4 MG TA4 MG PO (08:31)
[2016-10-11] MEDS ORDERED: BUM2 PO (08:31)
[2016-10-11] MEDS ORDERED: IMDUR60 PO (08:32)
[2016-10-11] MEDS ORDERED: PROTONIX PO (08:32)
[2016-10-11] MEDS ORDERED: NITROQUICK0.3 MG SL (08:32)
[2016-10-11] MEDS ORDERED: TEARS PURE OPH (08:33)
[2016-10-11] MEDS ORDERED: ASABAYER PO (08:33)
[2016-10-11] MEDS ORDERED: KLOR-CON M2020 MEQ PO (08:33)
[2016-10-11] MEDS ORDERED: PRAVAC PO (08:33)
[2016-10-11] MEDS ORDERED: VITAMIN D1000 UNI1 PO (08:34)
[2016-10-11] MEDS ORDERED: ZYRTEC ALLGY10 MG PO (08:34)
[2016-10-11] MEDS ORDERED: VICTOZA SC (08:36)
[2016-10-15] MEDS ORDERED: HUMALOGPEN SC ×2 (16:30)
[2016-10-15] MEDS ORDERED: ARMOUR THYRO PO (16:32)
[2016-10-15] MEDS ORDERED: LEVEMFLXPN SC (16:33)
[2016-10-15] MEDS ORDERED: PCET PO (16:34)
== END 2016-06-10 19:19 | DRG 643 ==
LOC: ER 22:49 → 7NO 06-03 03:09
PROVIDERS: Hospitalist; Internal Medicine; Internal Medicine Cardiovascular Disease; Nurse Practitioner Acute Care
DX: E03.9 Hypothyroidism, unspecified (principal); G93.41 Metabolic encephalopathy; J96.21 Acute and chronic respiratory failure with hypoxia; I27.81 Cor pulmonale (chronic); Z68.45 Body mass index [BMI] 70 or greater, adult; E66.2 Morbid (severe) obesity with alveolar hypoventilation; N39.0 Urinary tract infection, site not specified; I48.91 Unspecified atrial fibrillation; B96.20 Unspecified Escherichia coli [E. coli] as the cause of diseases classified elsewhere; I10 Essential (primary) hypertension; I89.0 Lymphedema, not elsewhere classified; R00.1 Bradycardia, unspecified; G47.33 Obstructive sleep apnea (adult) (pediatric); K21.9 Gastro-esophageal reflux disease without esophagitis; K58.9 Irritable bowel syndrome, unspecified; R49.0 Dysphonia; Z79.82 Long term (current) use of aspirin; Z79.4 Long term (current) use of insulin; Z86.718 Personal history of other venous thrombosis and embolism; Z85.43 Personal history of malignant neoplasm of ovary; Z90.49 Acquired absence of other specified parts of digestive tract
CPT/HCPCS: 36600; 70450; 71010; 80048; 80053; 81001; 82140; 82805; 82962; 83036; 83690; 83735; 83880; 84100; 84145; 84439; 84443; 84479; 84484; 85025; 85347; 87040; 87077; 87086; 87186; 93005; 93225; 93226; 93306; 93970; 94640; 96374; 96375; 97161-GP; 97530-GP; 99285; A9270-GY; G8978-CL-GP; G8979-CK-GP; J2930; J3411